=== PATIENT | female | born 1950 | race African-American/Black ===

== ENCOUNTER 2017-06-16 10:03 | Day surgery (SDC) | payer BC ==
[~2017-06-16] VITALS: Ht 172.7 cm; Wt 65.8 kg
--- NOTE | ~2017-06-16 | EGD ---
EGD REPORT [facility] [address] [address] NAME: BRYAN PATTERSON : [birth year] STATUS : REG [facility] PAT#: [id number] AGE: 67 ADM/REG DATE : 06/16/17 MR#: [id number] REPORT SERV DATE: 06/16/17 DICTATED BY: MIKE GARCIA DATE: 06/16/17 REPORT STATUS : Draft [facility] DATE: 06/16/17 Endoscopy Center Patient Name: Bryan Patterson Date of : 1950 Attending MD: MIKE GARCIA MD Procedure Date No Time: 06/16/2017 Procedure: Colonoscopy Indications: Screening for colorectal malignant neoplasm Referring MD: GIANNA GALVAN Medicines: Monitored Anesthesia Care Complications: No immediate complications. Procedure: Pre-Anesthesia Assessment: - ASA Grade Assessment: IV - A patient with severe systemic disease that is a constant threat to life. After I obtained informed consent, the scope was passed under direct vision. Throughout the procedure, the patient's blood pressure, pulse, and oxygen saturations were monitored continuously. The PCF [id number] was introduced through the anus and advanced to the cecum, identified by appendiceal orifice and ileocecal valve. The colonoscopy was performed with moderate difficulty due to significant looping. Successful completion of the procedure was aided by applying abdominal pressure. The patient tolerated the procedure well. The quality of the bowel preparation was adequate. Findings: The digital rectal exam was normal. Pertinent negatives include no palpable rectal lesions. Multiple diverticula were found in the entire colon. Hemorrhoids were found during retroflexion and were moderate. Impression: - Diverticulosis in the entire examined colon. - Hemorrhoids. Recommendation: - Patient has a contact number available for emergencies. The signs and symptoms of potential delayed complications were discussed with the patient. Return to normal activities tomorrow. Written discharge instructions were provided to the patient. - Regular diet. - Continue present medications. - Repeat colonoscopy in 10 years for screening purposes. - Return to GI clinic PRN. EGD REPORT [address] [place]. [address] NAME: BRYAN PATTERSON : [birth year] STATUS : REG [facility] PAT#: [id number] AGE: 67 ADM/REG DATE : 06/16/17 MR#: [id number] REPORT SERV DATE: 06/16/17 DICTATED BY: MIKE GARCIA DATE: 06/16/17 REPORT STATUS : Draft TRANSCRIBED BY: [employer] DATE: 06/16/17 Procedure Code(s): --- Professional --- 56196, Colonoscopy, flexible, proximal to splenic flexure; diagnostic, with or without collection of specimen(s) by brushing or washing, with or without colon decompression (separate procedure) Diagnosis Code(s): --- Professional --- K64.9, Unspecified hemorrhoids K57.30, Diverticulosis of large intestine without perforation or abscess without bleeding Z12.11, Encounter for screening for malignant neoplasm of colon CPT copyright 2013 [employer]. All rights reserved. The codes documented in this report are preliminary and upon greenhouse staff review may be revised to meet current compliance requirements. MIKE GARCIA MD 06/16/2017 11:44 AM This report has been signed electronically. Number of Addenda: 0 Note Initiated On: 06/16/2017 11:21 AM Scope Withdrawal Time 0 hours 6 minutes 41 seconds [id number] [place] [address]
--- NOTE | ~2017-06-16 | EGD ---
EGD REPORT [facility] [address] [address] NAME: BRYAN SCOTT : [birth year] STATUS : REG [facility] [place] PAT#: [id number] AGE: 67 ADM/REG DATE : 06/16/17 MR#: [id number] REPORT SERV DATE: 06/16/17 DICTATED BY: MIKE GARCIA DATE: 06/16/17 REPORT STATUS : Draft [facility]ANSCRIBED BY: [facility] DATE: 06/16/17 Endoscopy Center Patient Name: Bryan Scott Date of : 1950 Attending MD: MIKE GARCIA MD Procedure Date No Time: 06/16/2017 Procedure: Upper GI endoscopy Indications: Esophageal reflux Referring MD: GIANNA GALVAN Medicines: Monitored Anesthesia Care Complications: No immediate complications. Procedure: Pre-Anesthesia Assessment: - ASA Grade Assessment: IV - A patient with severe systemic disease that is a constant threat to life. After obtaining informed consent, the endoscope was passed under direct vision. Throughout the procedure, the patient's blood pressure, pulse, and oxygen saturations were monitored continuously. The GIF H190 [id number] was introduced through the mouth, and advanced to the second part of duodenum. The upper GI endoscopy was accomplished without difficulty. The patient tolerated the procedure well. Findings: The examined esophagus was normal. The entire examined stomach was normal. The cardia and gastric fundus were normal on retroflexion. The duodenal bulb and 2nd part of the duodenum were normal. Impression: - Normal esophagus. - Normal stomach. - Normal duodenal bulb and 2nd part of the duodenum. Recommendation: - Patient has a contact number available for emergencies. The signs and symptoms of potential delayed complications were discussed with the patient. Return to normal activities tomorrow. Written discharge instructions were provided to the patient. - Regular diet. - Follow an antireflux regimen. - Continue present medications. Procedure Code(s): --- Professional --- 24180, Esophagogastroduodenoscopy, flexible, transoral; diagnostic, including collection of specimen(s) by EGD REPORT [facility] [address] [place], [place] [id number]. [address] NAME: BRYAN SCOTT : [birth year] STATUS : REG [facility] [place] PAT#: [id number] AGE: 67 ADM/REG DATE : 06/16/17 MR#: [id number] REPORT SERV DATE: 06/16/17 DICTATED BY: MIKE GARCIA DATE: 06/16/17 REPORT STATUS : Draft TRANSCRIBED BY: [facility] DATE: 06/16/17 brushing or washing, when performed (separate procedure) Diagnosis Code(s): --- Professional --- K21.9, Gastro-esophageal reflux disease without esophagitis CPT copyright 2013 [employer]. All rights reserved. The codes documented in this report are preliminary and upon remote coders review may be revised to meet current compliance requirements. MIKE GARCIA MD 06/16/2017 11:30 AM This report has been signed electronically. Number of Addenda: 0 Note Initiated On: 06/16/2017 11:23 AM Scope Withdrawal Time 0 hours 0 minutes 0 seconds [id number] [facility] [place] [address]
[~2017-06-16 10:03] MED LIST: ALTA5 PO; AMB10 PO; ASAB PO; CALTRA600D PO; CARASPUDL PO; COUGH PO; FLOVENT110 INH; GLUCCHONDR PO; ISOPTINSR PO; LOPID6 PO; LORTABLIQ PO; MOBIC7.5 PO; NORCO1 TA1 PO; PLAVIX PO; PRAVACHOL40 MG PO; PRIN10 PO; PROTONIX PO; SYMBICORT 160/41 INH INH; VENTOLIN HFA INH; VERELAN240 MG PO; [UNRECOGNIZED DRUG - OTHER] PO; [UNRECOGNIZED DRUG - REMARK] PO
== END 2017-06-16 23:59 | disposition home or self-care (01) ==
LOC: DMU 10:03
PROVIDERS: Internal Medicine Gastroenterology
PROC: 0DJD8ZZ Inspection of Lower Intestinal Tract, Via Natural or Artificial Opening Endoscopic (ICD-10-PCS; principal; 2017-06-16 10:00)
PROC: 0DJ08ZZ Inspection of Upper Intestinal Tract, Via Natural or Artificial Opening Endoscopic (ICD-10-PCS; 2017-06-16 10:00)
DX: Z12.11 Encounter for screening for malignant neoplasm of colon (principal); K57.30 Diverticulosis of large intestine without perforation or abscess without bleeding; K64.9 Unspecified hemorrhoids; K21.9 Gastro-esophageal reflux disease without esophagitis; Z98.51 Tubal ligation status; Z85.118 Personal history of other malignant neoplasm of bronchus and lung; Z92.21 Personal history of antineoplastic chemotherapy; Z92.3 Personal history of irradiation; Z88.8 Allergy status to other drugs, medicaments and biological substances; Z79.82 Long term (current) use of aspirin; Z79.02 Long term (current) use of antithrombotics/antiplatelets; Z79.899 Other long term (current) drug therapy